=== PATIENT | male | born 1990 | race Caucasian/White ===

== ENCOUNTER 2020-11-17 18:47 | Emergency (ER) | payer OTHER ==
[~2020-11-17] VITALS: Ht 185.4 cm; Wt 85.0 kg
[2020-11-17 19:02] VITALS: BP 143/100
== END 2020-11-17 19:14 | disposition home or self-care (01) ==
LOC: ER 18:48
DX: Z00.8 Encounter for other general examination (principal); R07.81 Pleurodynia
CPT/HCPCS: 99283